=== PATIENT | male | born 2000 | race Caucasian/White ===

== ENCOUNTER 2021-06-30 07:37 | Day surgery (SDC) | payer OTHER ==
[~2021-06-30] VITALS: Ht 175.3 cm; Wt 106.6 kg
[~2021-06-30 07:37] MED LIST: LIDOCAINE 1% MDV 20ML VIAL SQ PRN; LIDOCAINE 2% 100MG/5ML SDV (FOR ANES.) As Ordered ONE; LR 1,000 ML IV ONE; MIDAZOLAM INJ 2MG/2ML VIAL (J2250 PER 1MG) As Ordered ONE; ROCURONIUM BROMIDE 50 MG/5 ML VIAL As Ordered ONE; fentaNYL 250 MCG/5 ML INJECTION (J3010) As Ordered ONE; propofoL 200 MG/20 ML VIAL As Ordered ONE
[2021-06-30] MEDS ORDERED: OXYMETAZOLINE 0.05% NASAL SPRAY (AFRIN) As Ordered ONE (08:33)
[2021-06-30] MEDS ORDERED: BUPIVACAINE/EPIN 0.5% 30 ML VIAL As Ordered ONE (08:34)
[2021-06-30] MEDS ORDERED: METHYLENE BLUE 0.5% (5MG/ML) 10 ML AMP (PROVAYBLUE) As Ordered ONE (08:36)
[2021-06-30] MEDS ORDERED: KETOROLAC 60MG 2ML VIAL As Ordered ONE ×2 (09:10→10:22)
[2021-06-30] MEDS ORDERED: dexameTHASONE 4 MG/ML 1ML VIAL (J1100 PER 1MG) As Ordered ONE ×2 (09:10→10:22)
[2021-06-30] MEDS ORDERED: ONDANSETRON 4MG/2ML VIAL As Ordered ONE ×2 (09:10→10:22)
[2021-06-30] MEDS ORDERED: SUGAMMADEX SODIUM 500 MG/5 ML VIAL (BRIDION) As Ordered ONE ×2 (09:12→10:27)
[2021-06-30] MEDS ORDERED: ACETAMINOPHEN 1000MG 100ML IV BTL (OFIRMEV) (J0131 PER 10MG) As Ordered ONE ×2 (09:15→10:25)
[2021-06-30] MEDS ORDERED: fentaNYL 100 MCG/2 ML INJECTION (J3010) IV PRN (09:55)
[2021-06-30] MEDS ORDERED: ONDANSETRON 4MG/2ML VIAL IV PRN ×2 (09:55→10:00)
[2021-06-30] MEDS ORDERED: HYDROcodone/APAP LIQUID 7.5-325MG 15ML UDC (LORTAB ELIXIR) PO PRN (09:55)
[2021-06-30] MEDS ORDERED: LR 1,000 ML IV SCH ×2 (09:55)
[2021-06-30] MEDS: oxyCODONE 5MG TAB PO PRN ×2 (09:56→10:29)
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
[2021-06-30 13:20] VITALS: BP 145/66
== END 2021-06-30 14:05 | disposition home or self-care (01) ==
LOC: M SDC 07:37
PROVIDERS: ATTEND Otolaryngology
DX: J35.01 Chronic tonsillitis (principal); K21.9 Gastro-esophageal reflux disease without esophagitis; G43.909 Migraine, unspecified, not intractable, without status migrainosus; Z88.0 Allergy status to penicillin; Z91.040 Latex allergy status
CPT/HCPCS: 42826; 88302; J0131; J1100; J1885; J2250; J2405; J3010; Q9968